=== PATIENT | female | born 1960 | race African-American/Black ===

== ENCOUNTER 2016-08-15 16:19 | Emergency (ER) | payer MEDICAID ==
[~2016-08-15] VITALS: Ht 165.1 cm; Wt 109.0 kg
[~2016-08-15 16:19] MED LIST: CLON0.1T PO
[2016-08-15] MEDS ORDERED: IBUPROFEN 600MG TABLET PO ONE (17:00)
[2016-08-15] MEDS ORDERED: CLONIDINE 0.1MG TABLET PO ONE (17:00)
[2016-08-15 17:22] LABS: BASOPHILS % 0.7 % (0.0-2.0); EOSINOPHILS % 2.2 % (0.0-5.0); HEMATOCRIT. 44.7 % (36.0-48.0); HEMOGLOBIN. 14.9 g/dL (12.0-16.0); LYMPHOCYTES % 35.3 % (20.0-50.0); MEAN CORPUSCULAR HEMOGLOBIN 27.9 pg (28.0-32.0); MEAN CORPUSCULAR HGB CONC 33.5 g/dL (31.0-37.0); MEAN CORPUSCULAR VOLUME 83.3 fL (81.0-99.0); MEAN PLATELET VOLUME 8.3 fl (7.4-10.4); MONOCYTES % 9.6 % (2.0-8.0); NEUTROPHILS % 52.2 % (40.0-76.0); PLATELET 285 x1000/uL (130-400); RED BLOOD CELL COUNT 5.36 mill/uL (4.2-5.4); RED CELL DISTRIBUTION WIDTH 14.8 % (11.6-14.6); WHITE BLOOD COUNT 6.8 x1000/uL (4.5-11.0)
[2016-08-15 17:25] LABS: CHLORIDE 110 mEq/L (98-107); INDEX HEMOLYSI 1 (1-3); INDEX ICTERIC 1 (1-4); INDEX LIPEMIC 1 (1-3)
[2016-08-15 17:32] LABS: ALANINE AMINOTRANSFERASE 28 IU/L (13-61); ALBUMIN 3.3 g/dL (3.4-5.0); ANION GAP 12; CALCIUM 9.4 mg/dL (8.5-10.1); CARBON DIOXIDE 28 mEq/L (21-32); TROPONIN I < 0.02 ng/mL (0.00-0.04); UREA NITROGEN BLOOD 16 mg/dL (7-21); eGFR > 60 mL/min (>60)
[2016-08-15 19:05] VITALS: BP 136/87
[2016-08-15] MEDS ORDERED: HYDROCODONE/ACETAMINOPHEN 5/325MG TABLET PO ONE (19:30)
== END 2016-08-15 20:04 | disposition home or self-care (01) ==
LOC: ER 17:13
DX: R51 Headache (principal); I10 Essential (primary) hypertension; H53.8 Other visual disturbances; F17.200 Nicotine dependence, unspecified, uncomplicated; Z98.51 Tubal ligation status; Z86.73 Personal history of transient ischemic attack (TIA), and cerebral infarction without residual deficits
CPT/HCPCS: 36415; 70450; 71010; 80053; 84484; 85025; 93005; 99285

== ENCOUNTER 2016-09-25 13:55 | Emergency (ER) | payer MEDICAID ==
[~2016-09-25] VITALS: Ht 162.6 cm; Wt 104.0 kg
[2016-09-25 14:04] VITALS: BP 170/99
== END 2016-09-25 19:22 | disposition home or self-care (01) ==
LOC: ER 16:12
DX: M25.572 Pain in left ankle and joints of left foot (principal); M25.571 Pain in right ankle and joints of right foot; I10 Essential (primary) hypertension; M16.12 Unilateral primary osteoarthritis, left hip; F17.210 Nicotine dependence, cigarettes, uncomplicated; Z86.73 Personal history of transient ischemic attack (TIA), and cerebral infarction without residual deficits; Z98.51 Tubal ligation status
CPT/HCPCS: 73502; 73610; 99284

== ENCOUNTER 2016-11-10 12:33 | Emergency (ER) | payer MEDICAID, OTHER ==
[~2016-11-10] VITALS: Ht 162.6 cm; Wt 109.0 kg
[2016-11-10 13:05] VITALS: BP 119/84
[2016-11-10] MEDS ORDERED: HYDR25TA PO (13:08)
== END 2016-11-10 14:00 | disposition left against medical advice (07) ==
LOC: ER 13:25
DX: R42 Dizziness and giddiness (principal); Z53.21 Procedure and treatment not carried out due to patient leaving prior to being seen by health care provider

== ENCOUNTER 2017-01-12 15:34 | Emergency (ER) | payer OTHER ==
[~2017-01-12] VITALS: Ht 162.6 cm; Wt 109.0 kg
[~2017-01-12 15:34] MED LIST changes: +HYDR25TA PO
[2017-01-12 17:09] LABS: BASOPHILS % 1.1 % (0.0-2.0); EOSINOPHILS % 2.5 % (0.0-5.0); HEMATOCRIT. 46.8 % (36.0-48.0); HEMOGLOBIN. 15.5 g/dL (12.0-16.0); LYMPHOCYTES % 37.3 % (20.0-50.0); MEAN CORPUSCULAR VOLUME 84.6 fL (81.0-99.0); MEAN PLATELET VOLUME 8.4 fl (7.4-10.4); MONOCYTES % 9.6 % (2.0-8.0); NEUTROPHILS % 49.5 % (40.0-76.0); PLATELET 306 x1000/uL (130-400); RED BLOOD CELL COUNT 5.53 mill/uL (4.2-5.4); RED CELL DISTRIBUTION WIDTH 15.1 % (11.6-14.6)
[2017-01-12 17:15] LABS: CHLORIDE 108 mEq/L (98-107); PROTHROMBIN TIME 10.5 sec (9.4-11.6)
[2017-01-12 17:22] LABS: CARBON DIOXIDE 30 mEq/L (21-32)
[2017-01-12 17:26] LABS: TROPONIN I < 0.02 ng/mL (0.00-0.04)
[2017-01-12] MEDS ORDERED: SODIUM CHLORIDE 0.9% 1,000 ML IV ONE (19:00)
[2017-01-12 19:10] VITALS: BP 147/63
== END 2017-01-12 19:28 | disposition home or self-care (01) ==
LOC: ER 16:04
DX: I10 Essential (primary) hypertension (principal); R51 Headache; R53.1 Weakness
CPT/HCPCS: 36415; 71010; 80053; 83880; 84484; 85025; 85610; 93005; 99285; J7030

== ENCOUNTER 2017-03-15 06:41 | Emergency (ER) | payer OTHER ==
[~2017-03-15] VITALS: Ht 167.6 cm; Wt 84.0 kg
[2017-03-15] MEDS ORDERED: KETOROLAC 30MG/ML VIAL IM ONE (08:00)
[2017-03-15 08:15] VITALS: BP 126/83
[2017-03-15] MEDS ORDERED: POLYETHYLENE GLYCOL 3350 (17GM) 1 DOSE PACK PO ONE (09:30)
== END 2017-03-15 10:16 | disposition home or self-care (01) ==
LOC: ER 06:41
DX: K59.00 Constipation, unspecified (principal); M25.552 Pain in left hip; I10 Essential (primary) hypertension; Z87.891 Personal history of nicotine dependence; Z96.642 Presence of left artificial hip joint
CPT/HCPCS: 74000; 96372; 99283; J1885

== ENCOUNTER 2017-04-20 11:45 | Emergency (ER) | payer OTHER ==
[~2017-04-20] VITALS: Ht 162.6 cm; Wt 105.0 kg
[2017-04-20 11:49] VITALS: BP 130/70
[2017-04-20] MEDS ORDERED: IBUPROFEN 600MG TABLET PO ONE (13:45)
== END 2017-04-20 14:17 | disposition home or self-care (01) ==
LOC: ER 11:45
DX: S92.511A Displaced fracture of proximal phalanx of right lesser toe(s), initial encounter for closed fracture (principal); I10 Essential (primary) hypertension; Z96.642 Presence of left artificial hip joint; W22.03XA Walked into furniture, initial encounter; Y93.89 Activity, other specified; Y92.89 Other specified places as the place of occurrence of the external cause; Y99.8 Other external cause status
CPT/HCPCS: 73660; 99284; Z7610

== ENCOUNTER 2017-07-20 22:54 | Emergency (ER) | payer OTHER ==
[~2017-07-20] VITALS: Ht 162.6 cm; Wt 139.0 kg
[2017-07-20] MEDS ORDERED: ACETAMINOPHEN 325MG TABLET PO ONE (23:15)
[2017-07-20] MEDS ORDERED: SODIUM CHLORIDE 0.9% 1,000 ML IV ONE (23:15)
[2017-07-20 23:56] LABS: CLARITY URINE CLOUDY (CLEAR); COLOR URINE ORANGE (YELLOW); KETONES URINE NEGATIVE (NEGATIVE); LEUKOCYTE ESTERASE URINE TRACE (NEGATIVE); NITRITE URINE NEGATIVE (NEGATIVE); OCCULT BLOOD URINE 3+ (NEGATIVE); PROTEIN URINE 1+ (NEGATIVE); SPECIFIC GRAVITY URINE 1.023 (1.005-1.030)
[2017-07-21 00:34] LABS: BASOPHILS % 0.6 % (0.0-2.0); EOSINOPHILS % 2.7 % (0.0-5.0); HEMATOCRIT. 43.2 % (36.0-48.0); HEMOGLOBIN. 14.3 g/dL (12.0-16.0); LYMPHOCYTES % 43.7 % (20.0-50.0); MEAN CORPUSCULAR VOLUME 81.7 fL (81.0-99.0); MEAN PLATELET VOLUME 8.3 fl (7.4-10.4); MONOCYTES % 9.3 % (2.0-8.0); NEUTROPHILS % 43.7 % (40.0-76.0); PLATELET 306 x1000/uL (130-400); RED BLOOD CELL COUNT 5.28 mill/uL (4.2-5.4); RED CELL DISTRIBUTION WIDTH 16.5 % (11.6-14.6)
[2017-07-21 00:37] LABS: CHLORIDE 108 mEq/L (98-107)
[2017-07-21 00:39] LABS: PROTHROMBIN TIME 10.1 sec (9.4-11.6)
[2017-07-21] MEDS ORDERED: IBUPROFEN 800MG TABLET PO ONE (02:00)
[2017-07-21 02:10] VITALS: BP 166/96
== END 2017-07-21 04:54 | disposition left against medical advice (07) ==
LOC: ER 22:54
DX: N93.9 Abnormal uterine and vaginal bleeding, unspecified (principal); I10 Essential (primary) hypertension; F17.200 Nicotine dependence, unspecified, uncomplicated; Z78.0 Asymptomatic menopausal state; Z96.649 Presence of unspecified artificial hip joint; Z98.51 Tubal ligation status
CPT/HCPCS: 36415; 80053; 81003; 85025; 85610; 96360; 99284; J7030; Z7610

== ENCOUNTER 2017-11-26 16:19 | Emergency (ER) | payer MEDICAID ==
[~2017-11-26] VITALS: Ht 162.6 cm; Wt 105.0 kg
[~2017-11-26 16:19] MED LIST changes: +CITA20TA19 MT; +QUET25TA MT
[2017-11-26 16:32] VITALS: BP 173/106
== END 2017-11-26 20:32 | disposition left against medical advice (07) ==
LOC: ER 18:28
DX: I10 Essential (primary) hypertension (principal); R42 Dizziness and giddiness; R11.0 Nausea; R51 Headache; H53.8 Other visual disturbances; F17.200 Nicotine dependence, unspecified, uncomplicated; Z98.51 Tubal ligation status
CPT/HCPCS: 99281

== ENCOUNTER 2018-06-27 08:16 | Inpatient (IN) | payer MEDICARE, MEDICAID ==
[~2018-06-27] VITALS: Ht 162.6 cm; Wt 117.9 kg
[2018-06-27] MEDS ORDERED: ALBUTEROL (0.083%) 2.5MG/3ML NEB HHN STA ×2 (09:03→09:44)
[2018-06-27 09:19] LABS: BASOPHILS % 0.9 % (0.0-2.0); EOSINOPHILS % 1.7 % (0.0-5.0); HEMATOCRIT. 44.4 % (36.0-48.0); HEMOGLOBIN. 14.3 g/dL (12.0-16.0); LYMPHOCYTES % 32.6 % (20.0-50.0); MEAN CORPUSCULAR HEMOGLOBIN 28.1 pg (28.0-32.0); MEAN CORPUSCULAR VOLUME 86.9 fL (81.0-99.0); MEAN PLATELET VOLUME 8.3 fl (7.4-10.4); MONOCYTES % 7.2 % (2.0-8.0); NEUTROPHILS % 57.6 % (40.0-76.0); PLATELET 298 x1000/uL (130-400); RED BLOOD CELL COUNT 5.11 mill/uL (4.2-5.4); RED CELL DISTRIBUTION WIDTH 14.5 % (11.6-14.6)
[2018-06-27 09:24] LABS: CHLORIDE 111 mEq/L (98-107)
[2018-06-27] MEDS ORDERED: IPRATROPIUM BROMIDE (0.02%) 0.5MG/2.5ML NEB HHN STA (09:44)
[2018-06-27] MEDS ORDERED: PREDNISONE 20MG TABLET PO STA (09:44)
[2018-06-27 11:42] LABS: BG BASE EXCESS -3.1 mmol/L (-2.0-2.0); BG CARBOXYHEMOGLOBIN 1.1 % (0.5-1.5); BG DEOXYHEMOGLOBIN 4.4 % (0.0-5.0); BG FRACTION INSPIRED OXYGEN 21; BG HCO3 ACT 20.6 mmol/L (22.0-26.0); BG METHEMOGLOBIN 0.2 % (0.0-1.5); BG OXYGEN SATURATION 95.5 % (92.0-98.5); BG OXYHEMOGLOBIN 94.3 % (94.0-97.0); BG PCO2 33.7 mmHg (35.0-45.0); BG PH 7.405 (7.350-7.450); BG PO2 75.7 mmHg (75.0-100.0); BG SAMPLE SITE RIGHT BRACHIAL; BG TOTAL HEMOGLOBIN 15.4 g/dL (12.0-18.0); BG VENT MODE ROOM AIR
[2018-06-27] MEDS ORDERED: ONDANSETRON HCL 4MG/2ML INJ IV PRN (12:45)
[2018-06-27] MEDS ORDERED: MAGNESIUM/ALUMINUM HYDROXIDE/SIMETHICONE 30ML UDC PO PRN (12:45)
[2018-06-27] MEDS ORDERED: CLONIDINE 0.1MG TABLET PO PRN (12:45)
[2018-06-27] MEDS ORDERED: NA PHOS,M-B/NA PHOS,DI-BA ENEMA 118ML PR PRN (12:45)
[2018-06-27] MEDS ORDERED: IPRATROPIUM/ALBUTEROL 0.5-3(2.5)MG/3ML NEB INH PRN (12:45)
[2018-06-27] MEDS ORDERED: DOCUSATE SODIUM 100MG CAPSULE PO PRN (12:45)
[2018-06-27] MEDS ORDERED: HYDROCODONE/ACETAMINOPHEN 5/325MG TABLET PO PRN (12:45)
[2018-06-27] MEDS ORDERED: DIPHENHYDRAMINE 50MG/ML VIAL IV PRN (12:45)
[2018-06-27] MEDS ORDERED: ACETAMINOPHEN 650MG SUPP PR PRN (12:45)
[2018-06-27] MEDS: ACETAMINOPHEN 325MG TABLET PO PRN ×2 (14:25→23:42)
[2018-06-27 15:10] LABS: CREATINE KINASE 198 IU/L (26-192)
[2018-06-27 15:12] LABS: CREATINE KINASE MB FRACTION 2.3 ng/mL (0.5-3.6)
[2018-06-27 16:26] VITALS: BP 140/71
[2018-06-27 16:38] VITALS: BP 140/71
[2018-06-27 20:00] VITALS: BP 140/73
[2018-06-28] VITALS: BP 159/92
[2018-06-28] MEDS ORDERED: ALBUTEROL (0.083%) 2.5MG/3ML NEB HHN SCH
[2018-06-28 00:16] LABS: CREATINE KINASE 199 IU/L (26-192)
[2018-06-28 00:18] LABS: CREATINE KINASE MB FRACTION 2.7 ng/mL (0.5-3.6)
[2018-06-28 02:57] LABS: *AMPHETAMINES SCREEN URINE NEGATIVE (NEGATIVE)
[2018-06-28 02:58] LABS: *BARBITURATES SCREEN URINE NEGATIVE (NEGATIVE); *BENZODIAZEPINES SCREEN URINE NEGATIVE (NEGATIVE); *COCAINE SCREEN URINE NEGATIVE (NEGATIVE); METHADONE URINE SCREEN NEGATIVE (NEGATIVE); OPIATES URINE SCREEN NEGATIVE (NEGATIVE); PHENCYCLIDINE URINE SCREEN NEGATIVE (NEGATIVE)
[2018-06-28 02:59] LABS: CANNABINOID URINE SCREEN NEGATIVE (NEGATIVE)
[2018-06-28 04:00] VITALS: BP 121/66
[2018-06-28 06:51] LABS: BASOPHILS % 0.3 % (0.0-2.0); EOSINOPHILS % 0.6 % (0.0-5.0); HEMATOCRIT. 42.7 % (36.0-48.0); MEAN CORPUSCULAR HEMOGLOBIN 28.7 pg (28.0-32.0); MEAN CORPUSCULAR VOLUME 87.8 fL (81.0-99.0); MEAN PLATELET VOLUME 8.6 fl (7.4-10.4); MONOCYTES % 7.8 % (2.0-8.0); NEUTROPHILS % 65.3 % (40.0-76.0); PLATELET 288 x1000/uL (130-400); RED BLOOD CELL COUNT 4.86 mill/uL (4.2-5.4); RED CELL DISTRIBUTION WIDTH 14.8 % (11.6-14.6)
[2018-06-28 07:19] LABS: CHLORIDE 110 mEq/L (98-107)
[2018-06-28 07:30] LABS: LDL CHOLESTEROL 100 mg/dL (5-100)
[2018-06-28 07:33] LABS: HDL CHOLESTEROL 70 mg/dL (40-59)
[2018-06-28 08:00] VITALS: BP 156/86
[2018-06-28 11:49] VITALS: BP 147/87
[2018-06-28 12:00] VITALS: BP 145/87
== END 2018-06-28 13:15 | disposition home or self-care (01) | DRG 313 ==
LOC: ER 08:50 → 7WST 09:53 → EDBEDREQ 09:55 → ENRESERV 14:20
PROVIDERS: ADMIT Family Medicine; ATTEND Family Medicine
DX: R07.89 Other chest pain (principal); Z68.41 Body mass index [BMI] 40.0-44.9, adult; I10 Essential (primary) hypertension; F17.210 Nicotine dependence, cigarettes, uncomplicated; E66.9 Obesity, unspecified; F32.9 Major depressive disorder, single episode, unspecified; F41.9 Anxiety disorder, unspecified; E78.5 Hyperlipidemia, unspecified; Z96.649 Presence of unspecified artificial hip joint; Z98.51 Tubal ligation status
CPT/HCPCS: 36415; 36600; 71045; 80061; 80305; 82375; 82550; 82553; 82805; 83880; 84484; 93005; 94640; 94644; 96374; 99285; J7512; J7611

== ENCOUNTER 2018-09-07 05:21 | Emergency (ER) | payer MEDICARE, MEDICAID ==
[~2018-09-07] VITALS: Ht 162.6 cm; Wt 123.9 kg
[2018-09-07 07:28] LABS: BASOPHILS % 1.3 % (0.0-2.0); EOSINOPHILS % 2.2 % (0.0-5.0); HEMATOCRIT. 44.7 % (36.0-48.0); HEMOGLOBIN. 14.4 g/dL (12.0-16.0); MEAN CORPUSCULAR VOLUME 86.8 fL (81.0-99.0); MEAN PLATELET VOLUME 8.1 fl (7.4-10.4); MONOCYTES % 8.2 % (2.0-8.0); NEUTROPHILS % 49.3 % (40.0-76.0); PLATELET 270 x1000/uL (130-400); RED BLOOD CELL COUNT 5.14 mill/uL (4.2-5.4)
[2018-09-07 07:32] LABS: CHLORIDE 109 mEq/L (98-107)
[2018-09-07 07:37] LABS: INR 0.9; PROTHROMBIN TIME 9.7 sec (9.6-11.0)
[2018-09-07 07:42] LABS: B-HCG QUANTITATIVE < 1 mIU/mL (<3)
[2018-09-07 09:00] VITALS: BP 129/80
== END 2018-09-07 09:11 | disposition home or self-care (01) ==
LOC: ER 05:21
DX: D25.9 Leiomyoma of uterus, unspecified (principal); N95.0 Postmenopausal bleeding; I10 Essential (primary) hypertension; Z98.51 Tubal ligation status; Z98.890 Other specified postprocedural states
CPT/HCPCS: 36415; 76830; 76856; 84702; 86850; 86900; 99284

== ENCOUNTER 2018-09-24 11:42 | Emergency (ER) | payer MEDICARE, MEDICAID ==
[~2018-09-24] VITALS: Ht 165.1 cm; Wt 113.0 kg
[2018-09-24 12:13] VITALS: BP 157/92
== END 2018-09-24 12:50 | disposition home or self-care (01) ==
LOC: ER 11:42
DX: L03.116 Cellulitis of left lower limb (principal); I10 Essential (primary) hypertension
CPT/HCPCS: 99283

== ENCOUNTER 2018-10-04 12:38 | Emergency (ER) | payer MEDICARE, MEDICAID ==
[~2018-10-04] VITALS: Ht 162.6 cm; Wt 123.0 kg
[2018-10-04 14:09] LABS: BASOPHILS % 0.6 % (0.0-2.0); EOSINOPHILS % 2.3 % (0.0-5.0); HEMATOCRIT. 42.8 % (36.0-48.0); HEMOGLOBIN. 14.1 g/dL (12.0-16.0); LYMPHOCYTES % 37.7 % (20.0-50.0); MEAN CORPUSCULAR HEMOGLOBIN 28.7 pg (28.0-32.0); MEAN CORPUSCULAR VOLUME 87.2 fL (81.0-99.0); MEAN PLATELET VOLUME 8.5 fl (7.4-10.4); MONOCYTES % 9.6 % (2.0-8.0); NEUTROPHILS % 49.8 % (40.0-76.0); PLATELET 323 x1000/uL (130-400); RED BLOOD CELL COUNT 4.91 mill/uL (4.2-5.4); RED CELL DISTRIBUTION WIDTH 14.4 % (11.6-14.6)
[2018-10-04 14:16] LABS: CHLORIDE 109 mEq/L (98-107); PROTHROMBIN TIME 10.1 sec (9.6-11.0)
[2018-10-04 15:15] VITALS: BP 125/80
[2018-10-04 15:44] LABS: CLARITY URINE CLEAR (CLEAR); COLOR URINE YELLOW (YELLOW); KETONES URINE NEGATIVE (NEGATIVE); LEUKOCYTE ESTERASE URINE TRACE (NEGATIVE); NITRITE URINE NEGATIVE (NEGATIVE); OCCULT BLOOD URINE 3+ (NEGATIVE); PH URINE 6.5 (4.5-8.0); PROTEIN URINE TRACE (NEGATIVE); SPECIFIC GRAVITY URINE 1.015 (1.005-1.030); UROBILINOGEN URINE 0.2 E.U./dL (0.2-1.0)
== END 2018-10-04 16:41 | disposition home or self-care (01) ==
LOC: ER 12:38
DX: D25.9 Leiomyoma of uterus, unspecified (principal); N39.0 Urinary tract infection, site not specified
CPT/HCPCS: 36415; 81025; 86850; 86900; 99283

== ENCOUNTER 2020-07-14 12:01 | Emergency (ER) | payer BC, MEDICARE ==
[~2020-07-14] VITALS: Ht 162.6 cm; Wt 127.0 kg
[~2020-07-14 12:01] MED LIST changes: +AMLO5TAB4 MT; +ASPI-1497 MT; +BLOO1KIT74 TP; +CLOP75TA15 PO; +LIP40 PO; -QUET25TA MT; +QUET25TA PO; +TOPUD PO; +TRAM50TA94 MT; +VARE1TAB22 MT
[2020-07-14] MEDS ORDERED: IBUPROFEN 600MG TABLET PO ONE (12:30)
[2020-07-14] MEDS ORDERED: METHOCARBAMOL 500MG TABLET PO ONE (12:30)
[2020-07-14] MEDS ORDERED: TOPUD MT (13:14)
[2020-07-14] MEDS ORDERED: METH-773 MT (13:14)
[2020-07-14 13:44] VITALS: BP 168/98
== END 2020-07-14 13:45 | disposition home or self-care (01) ==
LOC: ER 12:01
DX: S39.012A Strain of muscle, fascia and tendon of lower back, initial encounter (principal); I10 Essential (primary) hypertension; J44.9 Chronic obstructive pulmonary disease, unspecified; Z86.73 Personal history of transient ischemic attack (TIA), and cerebral infarction without residual deficits; Z90.710 Acquired absence of both cervix and uterus; Z96.649 Presence of unspecified artificial hip joint; X50.0XXA Overexertion from strenuous movement or load, initial encounter; Y93.89 Activity, other specified; Y92.018 Other place in single-family (private) house as the place of occurrence of the external cause
CPT/HCPCS: 99283

== ENCOUNTER 2021-02-18 16:41 | Emergency (ER) | payer BC, MEDICAID ==
[~2021-02-18] VITALS: Ht 162.6 cm; Wt 127.0 kg
[~2021-02-18 16:41] MED LIST changes: +METH-773 MT; +TOPUD MT
[2021-02-18 16:44] VITALS: BP 167/97
== END 2021-02-18 19:17 | disposition left against medical advice (07) ==
LOC: ER 16:41
DX: Z53.21 Procedure and treatment not carried out due to patient leaving prior to being seen by health care provider (principal); R06.02 Shortness of breath; R00.0 Tachycardia, unspecified
CPT/HCPCS: 93005

== ENCOUNTER 2021-06-20 04:19 | Emergency (ER) | payer BC, MEDICAID ==
[~2021-06-20] VITALS: Ht 162.6 cm; Wt 127.0 kg
[2021-06-20] MEDS ORDERED: LISINOPRIL 20MG TABLET PO ONE (05:30)
[2021-06-20] MEDS ORDERED: CLONIDINE 0.2MG TABLET PO ONE (05:30)
[2021-06-20 06:01] LABS: BASOPHILS % 0.6 % (0.0-2.0); EOSINOPHILS % 2.8 % (0.0-5.0); HEMATOCRIT. 45.2 % (36.0-48.0); HEMOGLOBIN. 14.6 g/dL (12.0-16.0); LYMPHOCYTES % 33.1 % (20.0-50.0); MEAN CORPUSCULAR HEMOGLOBIN 27.3 pg (28.0-32.0); MEAN CORPUSCULAR VOLUME 84.8 fL (81.0-99.0); MEAN PLATELET VOLUME 8.4 fl (7.4-10.4); MONOCYTES % 9.7 % (2.0-8.0); NEUTROPHILS % 53.8 % (40.0-76.0); PLATELET 305 x1000/uL (130-400); RED BLOOD CELL COUNT 5.33 mill/uL (4.2-5.4); RED CELL DISTRIBUTION WIDTH 14.9 % (11.6-14.6)
[2021-06-20 06:06] LABS: CHLORIDE 111 mEq/L (98-107)
[2021-06-20 06:42] LABS: CLARITY URINE CLEAR (CLEAR); COLOR URINE YELLOW (YELLOW); KETONES URINE NEGATIVE (NEGATIVE); LEUKOCYTE ESTERASE URINE NEGATIVE (NEGATIVE); NITRITE URINE NEGATIVE (NEGATIVE); OCCULT BLOOD URINE NEGATIVE (NEGATIVE); PH URINE 5.5 (4.5-8.0); PROTEIN URINE NEGATIVE (NEGATIVE); SPECIFIC GRAVITY URINE 1.019 (1.005-1.030)
[2021-06-20] MEDS ORDERED: ACETAMINOPHEN 325MG TABLET PO ONE (08:00)
[2021-06-20] MEDS ORDERED: CLON0.2T MT (08:40)
[2021-06-20 09:25] VITALS: BP 154/88
== END 2021-06-20 09:37 | disposition home or self-care (01) ==
LOC: ER 04:19
DX: I10 Essential (primary) hypertension (principal)
CPT/HCPCS: 36415; 71045; 80053; 81003; 83880; 84484; 85025; 93005; 99285

== ENCOUNTER 2022-03-27 12:45 | Emergency (ER) | payer BC, MEDICAID ==
[~2022-03-27] VITALS: Ht 162.6 cm; Wt 122.0 kg
[~2022-03-27 12:45] MED LIST changes: +CLON0.2T MT
[2022-03-27] MEDS ORDERED: KETOROLAC 15MG/ML VIAL IV ONE (13:30)
[2022-03-27] MEDS ORDERED: DIPHENHYDRAMINE 50MG/ML VIAL IV ONE (13:30)
[2022-03-27] MEDS ORDERED: METOCLOPRAMIDE HCL 10MG/2ML VIAL IV ONE (13:30)
[2022-03-27] MEDS ORDERED: SODIUM CHLORIDE 0.9% 1,000 ML IV ONE (13:30)
[2022-03-27] MEDS ORDERED: METOCLOPRAMIDE HCL 10MG/2ML VIAL IV NR (16:30)
[2022-03-27] MEDS ORDERED: DIPHENHYDRAMINE 50MG/ML VIAL IV NR (16:30)
[2022-03-27] MEDS ORDERED: KETOROLAC 15MG/ML VIAL IV NR (16:30)
[2022-03-27 16:40] LABS: BASOPHILS % 0.7 % (0.0-2.0); EOSINOPHILS % 2.9 % (0.0-5.0); HEMATOCRIT. 44.7 % (36.0-48.0); HEMOGLOBIN. 14.8 g/dL (12.0-16.0); LYMPHOCYTES % 40.2 % (20.0-50.0); MEAN CORPUSCULAR HEMOGLOBIN 28.8 pg (28.0-32.0); MEAN CORPUSCULAR VOLUME 87.3 fL (81.0-99.0); MONOCYTES % 8.6 % (2.0-8.0); NEUTROPHILS % 47.6 % (40.0-76.0); PLATELET 315 x1000/uL (130-400); RED BLOOD CELL COUNT 5.12 mill/uL (4.2-5.4); RED CELL DISTRIBUTION WIDTH 14.5 % (11.6-14.6)
[2022-03-27 16:42] LABS: CHLORIDE 104 mEq/L (98-107)
[2022-03-27 17:14] VITALS: BP 154/85
== END 2022-03-27 17:39 | disposition home or self-care (01) ==
LOC: ER 13:04
DX: I10 Essential (primary) hypertension (principal); J44.1 Chronic obstructive pulmonary disease with (acute) exacerbation; Z79.899 Other long term (current) drug therapy
CPT/HCPCS: 36415; 70450; 80053; 83880; 84484; 85025; 93005; 96361; 96374; 96375; 99285; J1200; J1885; J2765; J7030

== ENCOUNTER 2022-10-25 15:07 | Emergency (ER) | payer BC, MEDICAID ==
[~2022-10-25] VITALS: Ht 167.6 cm; Wt 127.0 kg
[2022-10-25 15:08] VITALS: PULSE 72; RESP 16
[2022-10-25 15:22] VITALS: BP 131/78; TEMP 99.1; O2SAT 100
== END 2022-10-25 16:44 | disposition home or self-care (01) ==
LOC: ER 15:07
DX: I16.0 Hypertensive urgency (principal); I10 Essential (primary) hypertension; J44.9 Chronic obstructive pulmonary disease, unspecified; Z90.710 Acquired absence of both cervix and uterus; Z79.899 Other long term (current) drug therapy
CPT/HCPCS: 82962; 93005; 99283

== ENCOUNTER 2023-05-03 10:56 | Emergency (ER) | payer BC, MEDICARE ==
[~2023-05-03] VITALS: Ht 167.6 cm; Wt 121.0 kg
[~2023-05-03 10:56] MED LIST changes: +BUPR-315 PO; -CITA20TA19 MT; -CLON0.1T PO; -CLON0.2T MT; +CLOP-31 PO; -CLOP75TA15 PO; +GABA-532 PO; -HYDR25TA PO; -LIP40 PO; +LOSA1TAB34 PO; -METH-773 MT; +METO-385 PO; -QUET25TA PO; -TOPUD MT; -TRAM50TA94 MT
[2023-05-03 11:26] VITALS: BP 177/99; PULSE 83; RESP 16; TEMP 98.5; O2SAT 96
[2023-05-03] MEDS ORDERED: CEFTRIAXONE 1GM PREMIX 50 ML IV ONE (12:00)
[2023-05-03 12:54] LABS: BASOPHILS % 0.6 % (0.0-2.0); HEMATOCRIT. 42.3 % (36.0-48.0); LYMPHOCYTES % 40.9 % (20.0-50.0); MEAN CORPUSCULAR HEMOGLOBIN 28.6 pg (28.0-32.0); MEAN CORPUSCULAR HGB CONC 33.1 g/dL (31.0-37.0); MEAN CORPUSCULAR VOLUME 86.5 fL (81.0-99.0); MEAN PLATELET VOLUME 7.8 fl (7.4-10.4); MONOCYTES % 10.7 % (2.0-8.0); NEUTROPHILS % 42.8 % (40.0-76.0); PLATELET 450 x1000/uL (130-400); RED BLOOD CELL COUNT 4.89 mill/uL (4.2-5.4); RED CELL DISTRIBUTION WIDTH 15.8 % (11.6-14.6); WHITE BLOOD COUNT 6.3 x1000/uL (4.5-11.0)
[2023-05-03 13:35] LABS: ALANINE AMINOTRANSFERASE 31 IU/L (10-49); ALBUMIN 4.1 g/dL (3.2-4.8); ASPARTATE AMINOTRANSFERASE 19 IU/L (<34); BILIRUBIN TOTAL 0.4 mg/dL (0.1-1.0); CALCIUM 9.3 mg/dL (8.7-10.4); CARBON DIOXIDE 24 mEq/L (21-32); CHLORIDE 108 mEq/L (98-107); CREATININE 0.9 mg/dL (0.6-1.0); GLUCOSE 74 mg/dL (70-105); POTASSIUM 3.6 mEq/L (3.5-5.1); PROTEIN TOTAL 7.7 g/dL (6.0-8.3); SODIUM 140 mEq/L (136-145); UREA NITROGEN BLOOD 10 mg/dL (9-23)
[2023-05-03] MEDS ORDERED: SULF1TAB48 MT (15:10)
[2023-05-03] MEDS ORDERED: BACITRACIN ZINC OINT UDPKT TOP ONE (15:15)
== END 2023-05-03 16:39 | disposition left against medical advice (07) ==
LOC: ER 10:56
DX: T81.30XA Disruption of wound, unspecified, initial encounter (principal); I10 Essential (primary) hypertension; Z79.899 Other long term (current) drug therapy
CPT/HCPCS: 99284; 71045; 80053; 83605; 85025; 87040; 36415; C1893

== ENCOUNTER 2023-11-27 07:53 | Emergency (ER) | payer MEDICAID ==
[~2023-11-27] VITALS: Ht 165.1 cm; Wt 105.0 kg
[~2023-11-27 07:53] MED LIST changes: -METO-385 PO; +METO-411 MT; +SULF1TAB48 MT; +SULF1TAB48 PO
[2023-11-27 08:10] VITALS: O2SAT 97
[2023-11-27 09:43] LABS: EOSINOPHILS % 3.5 % (0.0-5.0); HEMATOCRIT. 43.5 % (36.0-48.0); LYMPHOCYTES % 37.8 % (20.0-50.0); MEAN CORPUSCULAR HGB CONC 32.2 g/dL (31.0-37.0); MEAN CORPUSCULAR VOLUME 86.7 fL (81.0-99.0); MEAN PLATELET VOLUME 8.2 fl (7.4-10.4); MONOCYTES % 6.7 % (2.0-8.0); PLATELET 328 x1000/uL (130-400); RED BLOOD CELL COUNT 5.02 mill/uL (4.2-5.4); RED CELL DISTRIBUTION WIDTH 15.7 % (11.6-14.6); WHITE BLOOD COUNT 5.8 x1000/uL (4.5-11.0)
[2023-11-27 09:49] LABS: CHLORIDE 108 mEq/L (98-107); SODIUM 142 mEq/L (136-145)
[2023-11-27 09:50] LABS: CARBON DIOXIDE 28 mEq/L (21-32)
[2023-11-27 09:51] LABS: CALCIUM 9.3 mg/dL (8.7-10.4)
[2023-11-27 09:55] LABS: CREATININE 0.9 mg/dL (0.6-1.0); GLUCOSE 161 mg/dL (70-105)
[2023-11-27 09:56] LABS: UREA NITROGEN BLOOD 13 mg/dL (9-23)
[2023-11-27 09:57] LABS: ALANINE AMINOTRANSFERASE 20 IU/L (10-49); ALBUMIN 3.9 g/dL (3.2-4.8); ASPARTATE AMINOTRANSFERASE 16 IU/L (<34)
[2023-11-27 09:58] LABS: BILIRUBIN DIRECT 0.1 mg/dL (<=3.0); BILIRUBIN TOTAL 0.3 mg/dL (0.1-1.0); PROTEIN TOTAL 6.8 g/dL (6.0-8.3)
[2023-11-27] MEDS ORDERED: ACETAMINOPHEN 325MG TABLET PO ONE (10:15)
[2023-11-27 11:40] VITALS: BP 123/84; PULSE 91; RESP 18; TEMP 98
== END 2023-11-27 11:47 | disposition home or self-care (01) ==
LOC: ER 08:11
DX: R10.9 Unspecified abdominal pain (principal); I10 Essential (primary) hypertension; Z79.899 Other long term (current) drug therapy; Z98.890 Other specified postprocedural states; Z90.710 Acquired absence of both cervix and uterus; Z96.649 Presence of unspecified artificial hip joint
CPT/HCPCS: 36415; 76857; 80048; 80076; 85025; 86850; 86900; 93005; 99284

== ENCOUNTER 2024-02-04 10:53 | Emergency (ER) | payer BC, MEDICAID ==
[~2024-02-04] VITALS: Ht 162.6 cm; Wt 127.0 kg
[~2024-02-04 10:53] MED LIST changes: -BUPR-315 PO; +BUPR-553 PO
[2024-02-04 10:59] VITALS: O2SAT 95
[2024-02-04 11:26] LABS: BASOPHILS % 0.7 % (0.0-2.0); EOSINOPHILS % 2.7 % (0.0-5.0); HEMATOCRIT. 45.4 % (36.0-48.0); HEMOGLOBIN. 14.8 g/dL (12.0-16.0); LYMPHOCYTES % 39.4 % (20.0-50.0); MEAN CORPUSCULAR HEMOGLOBIN 27.9 pg (28.0-32.0); MEAN CORPUSCULAR HGB CONC 32.5 g/dL (31.0-37.0); MEAN CORPUSCULAR VOLUME 85.9 fL (81.0-99.0); MEAN PLATELET VOLUME 8.4 fl (7.4-10.4); MONOCYTES % 8.8 % (2.0-8.0); NEUTROPHILS % 48.4 % (40.0-76.0); PLATELET 313 x1000/uL (130-400); RED BLOOD CELL COUNT 5.29 mill/uL (4.2-5.4); RED CELL DISTRIBUTION WIDTH 15.6 % (11.6-14.6)
[2024-02-04 11:31] LABS: CHLORIDE 106 mEq/L (98-107); POTASSIUM 4.1 mEq/L (3.5-5.1); SODIUM 141 mEq/L (136-145)
[2024-02-04 11:32] LABS: CALCIUM 9.5 mg/dL (8.7-10.4); CARBON DIOXIDE 31 mEq/L (21-32)
[2024-02-04 11:37] LABS: GLUCOSE 92 mg/dL (70-105); UREA NITROGEN BLOOD 17 mg/dL (9-23)
[2024-02-04 11:40] LABS: TROPONIN I HIGH SENSITIVITY < 4 ng/L (3.0-34)
[2024-02-04] MEDS: ASPIRIN 81MG TABLET PO ONE (11:58)
[2024-02-04 14:04] VITALS: BP 134/74; PULSE 70; RESP 18; TEMP 36.94740; O2SAT 97
== END 2024-02-04 14:12 | disposition left against medical advice (07) ==
LOC: ER 10:53
DX: R07.89 Other chest pain (principal); I10 Essential (primary) hypertension; Z79.82 Long term (current) use of aspirin; Z79.899 Other long term (current) drug therapy; Z90.710 Acquired absence of both cervix and uterus; Z79.02 Long term (current) use of antithrombotics/antiplatelets
CPT/HCPCS: 36415; 71045; 80048; 84484; 85025; 93005; 99285

== ENCOUNTER 2024-02-19 07:43 | Emergency (ER) | payer BC, MEDICAID ==
[~2024-02-19] VITALS: Ht 162.6 cm; Wt 127.0 kg
[2024-02-19 08:03] VITALS: O2SAT 97
[2024-02-19] MEDS: KETOROLAC 30MG/ML VIAL IM ONE (09:08)
[2024-02-19 10:51] VITALS: BP 158/78; PULSE 74; RESP 18; TEMP 37.16964; O2SAT 97
== END 2024-02-19 10:52 | disposition home or self-care (01) ==
LOC: ER 07:43
DX: M25.561 Pain in right knee (principal); I10 Essential (primary) hypertension; Z79.899 Other long term (current) drug therapy; Z90.710 Acquired absence of both cervix and uterus
CPT/HCPCS: 99285; 93971; 73562; 96372; J1885

== ENCOUNTER 2024-05-02 04:44 | Inpatient (IN) | payer BC, MEDICAID, MEDICARE ==
[~2024-05-02] VITALS: Ht 162.6 cm; Wt 127.0 kg
[~2024-05-02 04:44] MED LIST changes: -AMLO5TAB4 MT; +AMLO5TAB5 MT; +GABA-1180 PO; -GABA-532 PO
[2024-05-02 05:39] LABS: HEMATOCRIT. 45.1 % (36.0-48.0); HEMOGLOBIN. 14.5 g/dL (12.0-16.0); MEAN CORPUSCULAR HEMOGLOBIN 27.8 pg (28.0-32.0); MEAN CORPUSCULAR HGB CONC 32.1 g/dL (31.0-37.0); MEAN CORPUSCULAR VOLUME 86.5 fL (81.0-99.0); PLATELET 297 x1000/uL (130-400); RED BLOOD CELL COUNT 5.21 mill/uL (4.2-5.4); RED CELL DISTRIBUTION WIDTH 15.4 % (11.6-14.6); WHITE BLOOD COUNT 5.3 x1000/uL (4.5-11.0)
[2024-05-02 05:48] LABS: CHLORIDE 107 mEq/L (98-107); POTASSIUM 4.6 mEq/L (3.5-5.1); SODIUM 141 mEq/L (136-145)
[2024-05-02 05:51] LABS: CALCIUM 9.4 mg/dL (8.7-10.4); CARBON DIOXIDE 27 mEq/L (21-32)
[2024-05-02 05:54] LABS: DIFFERENTIAL COMMENT 1
[2024-05-02 05:56] LABS: GLUCOSE 109 mg/dL (70-105); UREA NITROGEN BLOOD 16 mg/dL (9-23)
[2024-05-02 06:31] LABS: TROPONIN I HIGH SENSITIVITY < 4 ng/L (3.0-34)
[2024-05-02 07:46] LABS: PLATELET ESTIMATE NORMAL
[2024-05-02] MEDS: HYDRALAZINE 20MG/ML VIAL IV ONE (08:16)
[2024-05-02 08:45] VITALS: PULSE 95; RESP 20; O2SAT 95
[2024-05-02] MEDS: ALBUTEROL (0.083%) 2.5MG/3ML NEB HHN STA (08:45)
[2024-05-02] MEDS ORDERED: CLONIDINE 0.1MG TABLET PO PRN (11:30)
[2024-05-02] MEDS ORDERED: ONDANSETRON HCL 4MG/2ML INJ IV PRN (11:30)
[2024-05-02] MEDS ORDERED: HYDROCODONE/ACETAMINOPHEN 5/325MG TABLET PO PRN (11:30)
[2024-05-02 12:00] VITALS: BP 154/97; PULSE 109; RESP 20; TEMP 37.33632; O2SAT 94
[2024-05-02] MEDS: ENOXAPARIN 30MG/0.3ML SYR SUBCUT SCH (12:20)
[2024-05-02] MEDS: ACETAMINOPHEN 325MG TABLET PO PRN (12:27)
[2024-05-02] MEDS: METOPROLOL TARTRATE 50MG TABLET PO SCH (12:38)
[2024-05-02] MEDS: CLOPIDOGREL 75MG TABLET PO SCH (12:39)
[2024-05-02] MEDS: LOSARTAN 50 MG TABLET PO SCH (12:39)
[2024-05-02] MEDS: AMLODIPINE 5MG TABLET PO SCH (12:39)
[2024-05-02] MEDS: GABAPENTIN 300MG CAPSULE PO SCH (13:00)
[2024-05-02 16:00] VITALS: BP 147/79; PULSE 78; RESP 20; TEMP 37.05852; O2SAT 99
[2024-05-02 16:56] LABS: CREATINE KINASE MB FRACTION 2.2 ng/mL (0.5-3.6)
[2024-05-02 16:57] LABS: CREATINE KINASE 268 IU/L (34-145)
[2024-05-02 17:04] LABS: TROPONIN I HIGH SENSITIVITY < 4 ng/L (3.0-34)
[2024-05-02] MEDS: METHYLPREDNISOLONE SOD SUCC 40MG/ML (ACT-O-VIAL) IV SCH (17:30)
[2024-05-02] MEDS ORDERED: AMOXICILLIN/POTASSIUM CLAVULANATE 875/125MG TAB PO SCH (21:00)
[2024-05-02] MEDS ORDERED: BUPROPION HCL 150MG SR TABLET PO SCH (21:00)
[2024-05-02] MEDS ORDERED: ATORVASTATIN CALCIUM 40MG TABLET PO SCH (21:00)
[2024-05-02] MEDS ORDERED: FLUTICASONE PROPIONATE 50MCG/SPRAY BOTTLE BOTHNSTRLS SCH (21:00)
[2024-05-02] MEDS ORDERED: ZOLPIDEM TARTRATE 5MG TABLET PO PRN (21:00)
[2024-05-03] MEDS ORDERED: ASPIRIN 81MG TABLET PO SCH (09:00)
[2024-05-03] MEDS ORDERED: PANTOPRAZOLE SODIUM 40 MG/VIAL IV SCH (09:00)
== END 2024-05-02 18:38 | disposition left against medical advice (07) | DRG 202 ==
LOC: ER 04:44 → 5WST 09:20 → EDBEDREQ 09:22
PROVIDERS: ADMIT Internal Medicine; ATTEND Internal Medicine
DX: J20.9 Acute bronchitis, unspecified (principal); J96.91 Respiratory failure, unspecified with hypoxia; Z68.42 Body mass index [BMI] 45.0-49.9, adult; J44.0 Chronic obstructive pulmonary disease with (acute) lower respiratory infection; I16.0 Hypertensive urgency; E78.5 Hyperlipidemia, unspecified; I25.10 Atherosclerotic heart disease of native coronary artery without angina pectoris; Z53.29 Procedure and treatment not carried out because of patient's decision for other reasons; I10 Essential (primary) hypertension; E66.9 Obesity, unspecified; J32.9 Chronic sinusitis, unspecified; Z96.649 Presence of unspecified artificial hip joint; Z95.1 Presence of aortocoronary bypass graft; Z87.891 Personal history of nicotine dependence; Z86.73 Personal history of transient ischemic attack (TIA), and cerebral infarction without residual deficits; Z90.710 Acquired absence of both cervix and uterus; Z82.49 Family history of ischemic heart disease and other diseases of the circulatory system
CPT/HCPCS: 36415; 71045; 80048; 80061; 82550; 82553; 83036; 83880; 84484; 85025; 93005; 93970; 94070; 94640; 99285; J0360; J1650

== ENCOUNTER 2024-10-21 09:57 | Emergency (ER) | payer BC, MEDICAID ==
[~2024-10-21] VITALS: Ht 162.6 cm; Wt 130.0 kg
[~2024-10-21 09:57] MED LIST changes: -BUPR-553 PO; +BUPR-710 PO
[2024-10-21 10:02] VITALS: O2SAT 97
[2024-10-21] MEDS: AMLODIPINE 5MG TABLET PO ONE ×2 (10:49→11:44)
[2024-10-21 11:03] LABS: BASOPHILS % 0.6 % (0.0-2.0); EOSINOPHILS % 3.9 % (0.0-5.0); HEMATOCRIT. 45.0 % (36.0-48.0); HEMOGLOBIN. 14.6 g/dL (12.0-16.0); LYMPHOCYTES % 35.1 % (20.0-50.0); MEAN PLATELET VOLUME 7.9 fl (7.4-10.4); MONOCYTES % 7.0 % (2.0-8.0); NEUTROPHILS % 53.4 % (40.0-76.0); PLATELET 364 x1000/uL (130-400); RED BLOOD CELL COUNT 5.30 mill/uL (4.2-5.4); RED CELL DISTRIBUTION WIDTH 15.2 % (11.6-14.6)
[2024-10-21 11:17] LABS: CREATININE 0.9 mg/dL (0.6-1.0); UREA NITROGEN BLOOD 10 mg/dL (9-23)
[2024-10-21 11:19] LABS: TROPONIN I HIGH SENSITIVITY < 4 ng/L (3.0-34)
[2024-10-21 11:20] LABS: CLARITY URINE CLOUDY (CLEAR); COLOR URINE YELLOW (YELLOW); GLUCOSE URINE NEGATIVE (NEGATIVE); KETONES URINE NEGATIVE (NEGATIVE); LEUKOCYTE ESTERASE URINE 1+ (NEGATIVE); NITRITE URINE NEGATIVE (NEGATIVE); OCCULT BLOOD URINE NEGATIVE (NEGATIVE); PH URINE 6.0 (4.5-8.0); PROTEIN URINE NEGATIVE (NEGATIVE); SPECIFIC GRAVITY URINE 1.021 (1.005-1.030); UROBILINOGEN URINE 1.0 E.U./dL (0.2-1.0)
[2024-10-21 11:24] LABS: INR 1.0
[2024-10-21 11:32] LABS: MUCUS URINE 1+ /lpf (< = 2+); SQUAMOUS EPITHELIAL CELL URINE 3+ /lpf (RARE/1+)
[2024-10-21 11:35] LABS: BACTERIA URINE 2+; RBC URINE NONE SEEN /hpf (0-2); WBC URINE 0-2 /hpf (0-2)
[2024-10-21 11:36] LABS: YEAST URINE 2+
[2024-10-21] MEDS ORDERED: CLOT21CR VG (12:11)
[2024-10-21] MEDS ORDERED: AMLO5TAB88 MT (12:11)
[2024-10-21 12:42] VITALS: BP 161/95; PULSE 77; RESP 18; TEMP 37.1; O2SAT 96
== END 2024-10-21 13:01 | disposition home or self-care (01) ==
LOC: ER 09:57
DX: B37.31 Acute candidiasis of vulva and vagina (principal); I10 Essential (primary) hypertension; R06.02 Shortness of breath; Z79.899 Other long term (current) drug therapy; Z86.73 Personal history of transient ischemic attack (TIA), and cerebral infarction without residual deficits; Z90.710 Acquired absence of both cervix and uterus; Z96.649 Presence of unspecified artificial hip joint
CPT/HCPCS: 36415; 71045; 80048; 81003; 83880; 84484; 85025; 93005; 99285

== ENCOUNTER 2025-01-28 11:57 | Emergency (ER) | payer BC, MEDICAID ==
[~2025-01-28] VITALS: Ht 162.6 cm; Wt 127.0 kg
[~2025-01-28 11:57] MED LIST changes: -AMLO5TAB5 MT; +AMLO5TAB6 MT; +AMLO5TAB88 MT; +CLOT21CR VG
[2025-01-28 11:59] VITALS: O2SAT 96
[2025-01-28] MEDS: ASPIRIN 81MG TABLET PO ONE (14:41)
[2025-01-28 14:54] LABS: BASOPHILS % 0.5 % (0.0-2.0); EOSINOPHILS % 3.1 % (0.0-5.0); HEMATOCRIT. 47.7 % (36.0-48.0); HEMOGLOBIN. 15.5 g/dL (12.0-16.0); LYMPHOCYTES % 34.2 % (20.0-50.0); MEAN PLATELET VOLUME 8.4 fl (7.4-10.4); MONOCYTES % 8.2 % (2.0-8.0); NEUTROPHILS % 54.0 % (40.0-76.0); PLATELET 329 x1000/uL (130-400); RED BLOOD CELL COUNT 5.60 mill/uL (4.2-5.4); RED CELL DISTRIBUTION WIDTH 15.4 % (11.6-14.6)
[2025-01-28 14:58] LABS: CREATININE 1.0 mg/dL (0.6-1.0); UREA NITROGEN BLOOD 10 mg/dL (9-23)
[2025-01-28 15:00] LABS: TROPONIN I HIGH SENSITIVITY < 4 ng/L (3.0-34)
[2025-01-28] MEDS ORDERED: LIDO-53 TP (15:14)
[2025-01-28] MEDS ORDERED: TOPUD PO (15:14)
[2025-01-28 15:24] VITALS: BP 175/107; PULSE 83; RESP 16; TEMP 36.9; O2SAT 95
== END 2025-01-28 15:25 | disposition home or self-care (01) ==
LOC: ER 11:57
DX: R07.9 Chest pain, unspecified (principal); I10 Essential (primary) hypertension; R06.02 Shortness of breath; Z79.899 Other long term (current) drug therapy; Z90.710 Acquired absence of both cervix and uterus; Z95.1 Presence of aortocoronary bypass graft; Z96.649 Presence of unspecified artificial hip joint
CPT/HCPCS: 36415; 71045; 80048; 83880; 84484; 85025; 93005; 99285

== ENCOUNTER 2025-02-27 08:52 | Emergency (ER) | payer BC, MEDICAID ==
[~2025-02-27] VITALS: Ht 170.2 cm; Wt 116.0 kg
[~2025-02-27 08:52] MED LIST changes: +LIDO-53 TP
[2025-02-27 09:15] VITALS: O2SAT 98
[2025-02-27] MEDS: LIDOCAINE HCL 1% 20ML VIAL INFIL ONE (11:08)
[2025-02-27] MEDS: TETANUS, DIPHTHERIA, PERTUSSIS VAC/PF 0.5ML (>10YR OLD) IM ONE (11:09)
[2025-02-27] MEDS ORDERED: BO1 TP (12:23)
[2025-02-27] MEDS ORDERED: CEPH500C2 MT (12:23)
[2025-02-27 12:56] VITALS: BP 164/98; PULSE 89; RESP 18; TEMP 37.1; O2SAT 98
== END 2025-02-27 12:57 | disposition home or self-care (01) ==
LOC: ER 08:52
DX: S61.210A Laceration without foreign body of right index finger without damage to nail, initial encounter (principal); I10 Essential (primary) hypertension; Z79.899 Other long term (current) drug therapy; Z90.710 Acquired absence of both cervix and uterus; Z96.649 Presence of unspecified artificial hip joint; X58.XXXA Exposure to other specified factors, initial encounter; Y93.89 Activity, other specified; Y92.89 Other specified places as the place of occurrence of the external cause; Y99.8 Other external cause status
CPT/HCPCS: 99283; 90715; 12002; 90471; J2003

== ENCOUNTER 2025-03-12 09:00 | Emergency (ER) | payer BC, MEDICAID ==
[~2025-03-12] VITALS: Ht 162.6 cm; Wt 125.0 kg
[~2025-03-12 09:00] MED LIST changes: +BO1 TP; +CEPH500C2 MT
[2025-03-12 09:20] VITALS: O2SAT 96
[2025-03-12 10:49] VITALS: BP 142/84; PULSE 85; RESP 15; TEMP 36.7; O2SAT 96
== END 2025-03-12 10:50 | disposition home or self-care (01) ==
LOC: ER 09:00
DX: S61.011D Laceration without foreign body of right thumb without damage to nail, subsequent encounter (principal); I10 Essential (primary) hypertension; Z90.710 Acquired absence of both cervix and uterus; Z95.1 Presence of aortocoronary bypass graft; Z96.649 Presence of unspecified artificial hip joint; Z79.899 Other long term (current) drug therapy; Z79.82 Long term (current) use of aspirin; Z79.02 Long term (current) use of antithrombotics/antiplatelets; X58.XXXD Exposure to other specified factors, subsequent encounter
CPT/HCPCS: 99282